=== PATIENT | female | born 1985 | race Caucasian/White ===

== ENCOUNTER 2017-01-24 15:38 | Emergency (ER) | payer SELFPAY ==
[~2017-01-24] VITALS: Ht 175.3 cm; Wt 59.0 kg
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
[2017-01-24 16:23] VITALS: BP 137/87
[2017-01-24] MEDS ORDERED: ROBAXIN-750750 MG PO (17:09)
[2017-01-24] MEDS ORDERED: IBUPROFEN600 MG ORAL (17:09)
[2017-01-24] MEDS ORDERED: BACITRACIN-P28.35 GM TP (17:09)
[2017-01-24 17:30] VITALS: BP 137/87
--- NOTE | 2017-01-25 09:49 | Diagnostic Imaging Report ---
Indication: Left knee pain Technique: XRAY KNEE THREE VIEWS LEFT Comparison: None Findings: There is no acute fracture or dislocation. Bone mineralization is normal. Soft tissues are grossly unremarkable. There is no joint effusion. Impression: No acute osseous abnormality.
== END 2017-01-24 17:32 | disposition home or self-care (01) ==
LOC: EMR 15:55
DX: S80.02XA Contusion of left knee, initial encounter (principal); S80.212A Abrasion, left knee, initial encounter; S50.812A Abrasion of left forearm, initial encounter; V43.52XA Car driver injured in collision with other type car in traffic accident, initial encounter; Y92.410 Unspecified street and highway as the place of occurrence of the external cause
CPT/HCPCS: 99284